=== PATIENT | female | born 1965 | race Caucasian/White ===

== ENCOUNTER 2021-08-26 13:43 | Emergency (ER) | payer BC ==
[2021-08-26] MEDS ORDERED: Sodium Chloride 0.9% 100 ML IV ONE (13:44)
[2021-08-26] MEDS ORDERED: Albuterol 6.7 GM Inhaler INH ONE ×2 (14:01→17:45)
--- NOTE | 2021-08-26 14:18 | EDM.PDOC ---
ED HPI GENERAL MEDICAL PROBLEM - General Chief Complaint: Respiratory Problem Stated Complaint: shortness of breath, Covid + Time Seen by Provider: 08/26/21 14:12 Source of Information: Reports: Patient History Limitations: Reports: No Limitations - History of Present Illness INITIAL COMMENTS - FREE TEXT/NARRATIVE: Patient 9 days into Covid infection. Sent here by [facility] for monoclonal infusion. Noted by nursing staff to be hernandes/SOB when ambulating. [place] much better when she sat down. Reports intermittent nausea/diarrhea. No vomiting. No fevers. also has Covid. Denies chronic medical conditions. Former smoker that quit "years ago". Overweight. On no prescription medications. Is using OTC cold medications but was not prescribed albuterol MDI. - Related Data Allergies Allergy/AdvReac Type Severity Reaction Status Date / Time No Known Allergies Allergy Verified 08/26/21 08:54 Home Meds: Home Meds Albuterol Sulfate [Albuterol Sulfate Hfa] 8.5 gm IH ASDIRECTED #1 hfa.aer.ad 08/26/21 [Rx] Ondansetron [Zofran ODT] 4 mg PO Q6H PRN #20 tab.dis 08/26/21 [Rx] Past Medical History Endocrine/Metabolic History: Reports: Obesity/BMI 30+ Social & Family History - Tobacco Use Tobacco Use Status *Q: Former Tobacco User ED ROS GENERAL - Review of Systems Review Of Systems: See Below Constitutional: Reports: Malaise, Fatigue, Decreased Appetite. Denies: Fever, Chills, Night Sweats, Diaphoresis Respiratory: Reports: Shortness of Breath, Wheezing, Cough. Denies: Pleuritic Chest Pain, Hemoptysis Cardiovascular: Reports: Dyspnea on Exertion, Lightheadedness. Denies: Chest Pain GI/Abdominal: Reports: Diarrhea, Decreased Appetite, Nausea. Denies: Abdominal Pain, Difficulty Swallowing, Distension, Vomiting : Reports: No Symptoms Musculoskeletal: Reports: Other (no acute changes reported) Skin: Reports: No Symptoms Neurological: Reports: Other (no focal acute changes) Psychiatric: Reports: No Symptoms Hematologic/Lymphatic: Reports: No Symptoms ED EXAM, GENERAL - Physical Exam Exam: See Below Exam Limited By: No Limitations General Appearance: Alert, Obese, Other (appears fatigued) Eye Exam: Bilateral Eye: EOMI, PERRL Ears: Hearing Grossly Normal Nose: No: Nasal Deformity, Nasal Swelling, Nasal Drainage Throat/Mouth: Normal Lips, Normal Voice, No Airway Compromise Head: Atraumatic, Normocephalic Neck: Supple, Non-Tender, Full Range of Motion Respiratory/Chest: No Respiratory Distress, Decreased Breath Sounds (throughout), Rhonchi (mild/bilat), Wheezing (mild/bilat). No: Rales, Accessory Muscle Use, Retractions Course - Vital Signs Last Recorded V/S: Last Vital Signs Temp 38.4 C H 08/26/21 17:39 Pulse 95 08/26/21 17:39 Resp 20 08/26/21 17:39 BP 142/81 H 08/26/21 17:39 Pulse Ox 99 08/26/21 17:39 - Orders/Labs/Meds Orders: Active Orders 24 hr Category Date Time Status Chest 2V [CR] Stat Exams 08/26/21 13:49 Taken PE Chest [Ang Chest] [CT] Stat Exams 08/26/21 15:06 Taken Labs: Laboratory Tests 08/26/21 08/26/21 08/26/21 Range/Units 14:10 14:10 14:10 WBC 5.6 (4.0-10.2) K/uL RBC 4.46 (3.77-5.09) M/uL Hgb 13.9 (11.7-15.5) g/dL Hct 41.2 (34.0-46.0) % MCV 92.4 (84.0-98.0) fL MCH 31.2 (28.2-33.3) pg MCHC 33.7 (31.7-36.0) g/dL RDW 13.9 (11.2-14.1) % Plt Count 255 (150-350) K/uL Neut % (Auto) 68.1 (45.0-80.0) % Lymph % (Auto) 25.9 (10.0-50.0) % Douglas % (Auto) 5.6 (2.0-14.0) % Eos % (Auto) 0.0 (0.0-5.0) % Baso % (Auto) 0.4 (0.0-2.0) % Neut # (Auto) 3.79 (1.40-7.00) K/uL Lymph # (Auto) 1.44 (0.50-3.50) K/uL Douglas # (Auto) 0.31 (0.00-1.00) K/uL Eos # (Auto) 0.00 (0.00-0.50) K/uL Baso # (Auto) 0.02 (0.00-0.20) K/uL D-Dimer, Quantitative (0-400) ng/mL Sodium 137 (136-145) mmol/L Potassium 3.8 (3.5-5.1) mmol/L Chloride 99 (98-107) mmol/L Carbon Dioxide 27.9 (21.0-32.0) mmol/L Anion Gap 10.1 (7-15) meq/L BUN 15 (7-18) mg/dL Creatinine 0.86 (0.51-1.17) mg/dL Est Cr Clr Drug Dosing TNP Estimated GFR (MDRD) > 60 mL/min Glucose 124 H (70-99) mg/dL Lactic Acid 1.1 (0.4-2.0) mmol/L Calcium 8.2 L (8.5-10.1) mg/dL Magnesium 1.8 (1.8-2.4) mg/dL Total Bilirubin 0.5 (0.2-1.0) mg/dL AST 32 (15-37) U/L ALT 37 (12-78) U/L Alkaline Phosphatase 48 (46-116) IU/L NT-Pro-B Natriuret Pep 24 (0-125) pg/mL Total Protein 7.3 (6.4-8.2) g/dL Albumin 3.3 L (3.4-5.0) g/dL 08/26/21 Range/Units 14:10 WBC (4.0-10.2) K/uL RBC (3.77-5.09) M/uL Hgb (11.7-15.5) g/dL Hct (34.0-46.0) % MCV (84.0-98.0) fL MCH (28.2-33.3) pg MCHC (31.7-36.0) g/dL RDW (11.2-14.1) % Plt Count (150-350) K/uL Neut % (Auto) (45.0-80.0) % Lymph % (Auto) (10.0-50.0) % Douglas % (Auto) (2.0-14.0) % Eos % (Auto) (0.0-5.0) % Baso % (Auto) (0.0-2.0) % Neut # (Auto) (1.40-7.00) K/uL Lymph # (Auto) (0.50-3.50) K/uL Douglas # (Auto) (0.00-1.00) K/uL Eos # (Auto) (0.00-0.50) K/uL Baso # (Auto) (0.00-0.20) K/uL D-Dimer, Quantitative 841 H (0-400) ng/mL Sodium (136-145) mmol/L Potassium (3.5-5.1) mmol/L Chloride (98-107) mmol/L Carbon Dioxide (21.0-32.0) mmol/L Anion Gap (7-15) meq/L BUN (7-18) mg/dL Creatinine (0.51-1.17) mg/dL Est Cr Clr Drug Dosing Estimated GFR (MDRD) mL/min Glucose (70-99) mg/dL Lactic Acid (0.4-2.0) mmol/L Calcium (8.5-10.1) mg/dL Magnesium (1.8-2.4) mg/dL Total Bilirubin (0.2-1.0) mg/dL AST (15-37) U/L ALT (12-78) U/L Alkaline Phosphatase (46-116) IU/L NT-Pro-B Natriuret Pep (0-125) pg/mL Total Protein (6.4-8.2) g/dL Albumin (3.4-5.0) g/dL Meds: Medications Discontinued Medications Generic Name Dose Route Start Last Admin Trade Name Freq PRN Reason Stop Dose Admin Albuterol 0 gm 08/26/21 14:01 08/26/21 14:04 Albuterol 6.7 Gm Inhaler INH 08/26/21 14:02 2 puff ONETIME ONE Administration Albuterol 0 gm 08/26/21 17:45 08/26/21 17:46 Albuterol 6.7 Gm Inhaler INH 08/26/21 17:46 2 puff ONETIME ONE Administration Iopamidol 100 ml 08/26/21 15:15 08/26/21 16:32 Iopamidol 755 Mg/Ml 100 Ml Bottle IVPUSH 08/26/21 15:16 100 ml ONETIME ONE Administration Norflurane Confirm 08/26/21 14:19 Norflurane/Hfc 245fa Medium [place] 103.5 Ml Can Administered 08/26/21 14:20 Dose 103.5 ml .ROUTE .[facility] - Re-Assessments/Exams Free Text/Narrative Re-Assessment/Exam: 08/26/21 14:19 Baseline labs/chest xray ordered. Albuterol MDI 2 inhalations administered to patient. Sats are 92% while sitting and on room air. 08/26/21 16:05 O2 sats on room air increased to 99% after Albuterol. Labs unremarkable except for DDimer 841. Explained that elevated ddimer could be flag for PE, but is usually up anyways in acute Covid. Patient elected to get CT angiogram for formal rule out. 08/26/21 21:03 CT negative for central PE. Patient's excessive movement during study interfered with visualization of small vessels. Patient doing well on room air since using albuterol MDI. Will be discharged from ER so that she can make her appointment for Monoclonal antibody infusion. Patient will take MDI home for regular use. Also Rx for prn Zofran. Has pulse ox at home and instructed to use it daily to monitor O2 sats. To return to the ER if she starts to fall into below 90. Departure - Departure Time of Disposition: 17:30 Disposition: Home, Self-Care 01 Condition: Good Clinical Impression: COVID-19 virus infection - Discharge Information *PRESCRIPTION DRUG MONITORING PROGRAM REVIEWED*: Not Applicable *COPY OF PRESCRIPTION DRUG MONITORING REPORT IN PATIENT MAGGIE: Not Applicable Prescriptions: Albuterol Sulfate [Albuterol Sulfate Hfa] 8.5 gm IH ASDIRECTED #1 hfa.aer.ad Ondansetron [Zofran ODT] 4 mg PO Q6H PRN #20 tab.dis PRN Reason: Nausea Instructions: Metered Dose Inhaler (No Spacer Used) Referrals: Jessica Ga [employer] [Primary Care Provider] - Forms: ED Department Discharge Additional Instructions: Use your pulse oximeter and keep track of trends! If you start to fall under 9 0% at rest after using the inhaler please come back to the ER for recheck. Use the inhaler 1-2 puffs every 2-6 hours for next several weeks (after that as needed) to help keep your oxygenation up. Take Zofran one every 6 to 8 hours as needed for nausea. Follow up otherwise as needed. Sepsis Event Note (ED) - Focused Exam Vital Signs: Vital Signs Temp Pulse Resp BP Pulse Ox 08/26/21 17:39 38.4 C H 95 20 142/81 H 99 08/26/21 14:00 37.4 C 85 18 135/78 88 L - My Orders Last 24 Hours: My Active Orders 08/26/21 13:49 Chest 2V [CR] Stat 08/26/21 15:06 PE Chest [Ang Chest] [CT] Stat - Assessment/Plan Last 24 Hours: My Active Orders 08/26/21 13:49 Chest 2V [CR] Stat 08/26/21 15:06 PE Chest [Ang Chest] [CT] Stat
[2021-08-26] MEDS ORDERED: Norflurane/HFc 245FA Medium Stream Spray 103.5 ML Can ONE (14:19)
[2021-08-26 14:54] LABS: ANION GAP 10.1 meq/L (7-15); CHLORIDE,CL 99 mmol/L (98-107); SODIUM,NA 137 mmol/L (136-145)
[2021-08-26] MEDS ORDERED: Iopamidol 755 Mg/ML 100 ML Bottle IVPUSH ONE (15:15)
== END 2021-08-26 17:36 | disposition home or self-care (01) ==
LOC: LL.ED 13:43
DX: U07.1 COVID-19 (principal); E66.9 Obesity, unspecified; Z68.30 Body mass index [BMI] 30.0-30.9, adult
CPT/HCPCS: 36415; 71046; 71275; 80053; 83605; 83735; 83880; 85025; 85379; 94640; 99284; 99285-25; A9270-GY; Q9967

== ENCOUNTER 2022-10-25 05:52 | Emergency (ER) | payer BC ==
[2022-10-25] MEDS: Sodium Chloride 0.9% 500 ML IV ONE (06:25)
[2022-10-25 06:53] LABS: ANION GAP 5.7 meq/L (7-15)
== END 2022-10-25 07:42 | disposition home or self-care (01) ==
LOC: LL.ED 05:52
DX: N30.01 Acute cystitis with hematuria (principal); E78.00 Pure hypercholesterolemia, unspecified; E11.9 Type 2 diabetes mellitus without complications; E66.9 Obesity, unspecified; Z68.41 Body mass index [BMI] 40.0-44.9, adult; Z79.84 Long term (current) use of oral hypoglycemic drugs; Z79.899 Other long term (current) drug therapy; Z87.891 Personal history of nicotine dependence
CPT/HCPCS: 36415; 80048; 81001; 85025; 87086; 99283; J7030